=== PATIENT | female | born 1990 | race Caucasian/White ===

== ENCOUNTER 2022-10-29 10:29 | Day surgery (SDC) | payer SELFPAY ==
[2022-10-27 15:34] VITALS: BMI 30.2
[2022-10-29] MEDS ORDERED: Bupivacaine PF 0.5% 30 ML VIAL ONE (10:54)
[2022-10-29] MEDS ORDERED: CEFAZOLIN 1 GM VIAL ONE (10:55)
[2022-10-29] MEDS ORDERED: Sodium Chloride 0.9% 10 ML ONE ×2 (10:57)
[2022-10-29 11:18] LABS: Hemoglobin 12.7 g/dL (12.0-15.5); Mean Corpuscular HGB CONC 31.6 g/dL (32.0-36.0); Mean Corpuscular Hemoglobin 31.8 pg (27.0-33.0); Mean Corpuscular Volume 100.5 fl (81.6-98.3); Mean Platelet Volume 10.4 fl (7.4-10.4); Platelet Count 281 10x3/uL (150-450); RBC Distribution Width 12.9 % (11.5-14.5); White Blood Cell (WBC) Count 8.9 10x3/uL (3.5-10.5)
[2022-10-29 11:41] LABS: Anion Gap 15 mmol/L (10-20); BUN (Urea Nitrogen) 22 mg/dL (7.0-18.7); Calc. Creatinine Clearance 82 mL/min (70-130); Carbon Dioxide 24 mmol/L (22-29); Chloride 105 mmol/L (98-107); Estimated GFR 65; Glucose 78 mg/dL (70-105); Sodium 139 mmol/L (136-145)
[2022-10-29] MEDS ORDERED: PROPOFOL 20 ML ONE (12:19)
[2022-10-29] MEDS ORDERED: Midazolam HCl 2 mg/2 ml Vial ONE (12:19)
[2022-10-29] MEDS ORDERED: Fentanyl 100 MCG/2 ML VIAL ONE ×2 (12:19→14:39)
[2022-10-29] MEDS ORDERED: Dexamethasone 4 mg/ml Vial ONE (13:04)
[2022-10-29] MEDS ORDERED: Ondansetron PF 4 MG/2 ML Vial ONE (13:04)
[2022-10-29] MEDS ORDERED: PHENYLEPHRINE-NS 100 MCG/ML 10 ML SYRINGE ONE (13:35)
[2022-10-29] MEDS ORDERED: Lidocaine 1% PF 5 ML VIAL ONE (13:38)
[2022-10-29] MEDS ORDERED: ePHEDrine Sulfate 50 MG/10 ML VIAL ONE (13:42)
[2022-10-29] MEDS ORDERED: Meperidine HCl/PF 25 MG/ML VIAL ONE (14:03)
[2022-10-29] MEDS ORDERED: HYDROcodone/Acetaminophen 5/325 mg Tablet ONE (15:17)
== END 2022-10-29 16:25 | disposition home or self-care (01) ==
LOC: CSHSDC 10:29
PROVIDERS: ATTEND Orthopaedic Surgery
PROC: 0QSM04Z Reposition Left Tarsal with Internal Fixation Device, Open Approach (ICD-10-PCS; principal; 2022-10-29)
PROC: 0QUP07Z Supplement Left Metatarsal with Autologous Tissue Substitute, Open Approach (ICD-10-PCS; principal; 2022-10-29)
PROC: 0QSP04Z Reposition Left Metatarsal with Internal Fixation Device, Open Approach (ICD-10-PCS; 2022-10-29)
DX: S92.352K Displaced fracture of fifth metatarsal bone, left foot, subsequent encounter for fracture with nonunion (principal); I10 Essential (primary) hypertension; Z79.899 Other long term (current) drug therapy; Z88.6 Allergy status to analgesic agent; Z88.8 Allergy status to other drugs, medicaments and biological substances; X58.XXXD Exposure to other specified factors, subsequent encounter
CPT/HCPCS: 80048; 85027; C1713; J0690; J1100; J2175; J2250; J2405; J2704; J3010; S0020

== ENCOUNTER 2022-12-21 11:22 | Inpatient (IN) | payer SELFPAY ==
[2022-12-21] MEDS ORDERED: Morphine 4 MG/ML VIAL ONE ×2 (13:04→16:43)
[2022-12-21] MEDS ORDERED: Ondansetron PF 4 MG/2 ML Vial ONE (13:04)
[2022-12-21] MEDS ORDERED: Cefepime 2 GM VIAL ONE (13:16)
[2022-12-21 13:20] LABS: #Neutrophils 11.4 10x3/uL (1.5-8.4); %Basophils 0.2 % (0.0-2.0); %Eosinophils 0.3 % (0.0-6.0); %Lymphocytes 11.5 % (18.0-47.0); %Monocytes 7.2 % (0.0-10.0); %Neutrophils 80.5 % (40.0-75.0); Hemoglobin 12.4 g/dL (12.0-15.5); Mean Corpuscular HGB CONC 32.3 g/dL (32.0-36.0); Mean Corpuscular Hemoglobin 32.3 pg (27.0-33.0); Mean Platelet Volume 10.5 fl (7.4-10.4); Platelet Count 284 10x3/uL (150-450); RBC Distribution Width 13.1 % (11.5-14.5); Red Blood Cell (RBC) Count 3.84 10x6/uL (3.90-5.03); White Blood Cell (WBC) Count 14.2 10x3/uL (3.5-10.5)
[2022-12-21] MEDS ORDERED: Acetaminophen 325 MG TAB ONE (13:24)
[2022-12-21 13:29] LABS: ALT (SGPT) 58 U/L (8-55); AST (SGOT) 26 U/L (5-34); Albumin 4.5 g/dL (3.5-5.0); Alkaline Phosphatase 101 U/L (40-110); Anion Gap 18 mmol/L (10-20); BUN (Urea Nitrogen) 13 mg/dL (7.0-18.7); Bilirubin, Total 0.6 mg/dL (0.2-1.2); Calc. Creatinine Clearance 0 mL/min (70-130); Calcium 10.1 mg/dL (7.8-10.44); Carbon Dioxide 20 mmol/L (22-29); Chloride 101 mmol/L (98-107); Estimated GFR 49; Globulin 3.2 g/dL (2.4-3.5); Glucose 88 mg/dL (70-105); Potassium 4.1 mmol/L (3.5-5.1); Protein, Total 7.7 g/dL (6.0-8.3); Sodium 135 mmol/L (136-145)
[2022-12-21] MEDS ORDERED: Vancomycin HCl 1.5 GM in Sodium Chloride 0.9% 500 ML IVPB SCH (13:30)
[2022-12-21] MEDS ORDERED: diphenhydrAMINE 25 MG CAP ONE (14:42)
[2022-12-21] MEDS ORDERED: Ondansetron PF 4 MG/2 ML Vial IVP PRN (15:32)
[2022-12-21] MEDS: Sodium Chloride 0.9% 1,000 ML IV SCH (20:07)
[2022-12-21] MEDS: Morphine 2 MG/ML VIAL SLOW IVP PRN (20:08)
[2022-12-21] MEDS: Heparin 5,000 UNITS/ML VIAL SC SCH (20:08)
[2022-12-21] MEDS ORDERED: Vancomycin 1 GM in Premix Bag 1 BAG IVPB SCH (21:00)
[2022-12-21] MEDS: Acetaminophen 325 MG TAB PO PRN (22:18)
[2022-12-21 22:19] VITALS: BMI 30.9
[2022-12-22] MEDS: Morphine 2 MG/ML VIAL SLOW IVP PRN ×3 (00:29→13:27)
[2022-12-22] MEDS: HYDROcodone/Acetaminophen 5/325 mg Tablet PO PRN ×5 (00:30→18:00)
[2022-12-22 04:12] LABS: #Eosinphils 0.2 10x3/uL (0.0-0.5); #Monocytes 1.1 10x3/uL (0.0-1.1); #Neutrophils 6.6 10x3/uL (1.5-8.4); %Basophils 0.2 % (0.0-2.0); %Eosinophils 1.9 % (0.0-6.0); %Lymphocytes 24.2 % (18.0-47.0); %Monocytes 10.6 % (0.0-10.0); %Neutrophils 62.6 % (40.0-75.0); Hemoglobin 9.8 g/dL (12.0-15.5); Mean Corpuscular HGB CONC 31.3 g/dL (32.0-36.0); Mean Corpuscular Hemoglobin 32.1 pg (27.0-33.0); Mean Corpuscular Volume 102.6 fl (81.6-98.3); Mean Platelet Volume 10.5 fl (7.4-10.4); Platelet Count 242 10x3/uL (150-450); RBC Distribution Width 13.2 % (11.5-14.5); Red Blood Cell (RBC) Count 3.05 10x6/uL (3.90-5.03); White Blood Cell (WBC) Count 10.6 10x3/uL (3.5-10.5)
[2022-12-22 04:21] LABS: Anion Gap 11 mmol/L (10-20); BUN (Urea Nitrogen) 12 mg/dL (7.0-18.7); Calc. Creatinine Clearance 79 mL/min (70-130); Calcium 8.7 mg/dL (7.8-10.44); Carbon Dioxide 21 mmol/L (22-29); Chloride 110 mmol/L (98-107); Estimated GFR 58; Glucose 91 mg/dL (70-105); Potassium 5.3 mmol/L (3.5-5.1); Sodium 137 mmol/L (136-145)
[2022-12-22] MEDS: Sodium Chloride 0.9% 1,000 ML IV SCH ×4 (04:41→13:53)
[2022-12-22] MEDS: Heparin 5,000 UNITS/ML VIAL SC SCH ×3 (08:55→20:15)
[2022-12-22] MEDS: Amlodipine 5 MG TAB PO SCH (09:01)
[2022-12-22] MEDS ORDERED: Piperacillin/Tazobactam 3.375 GM in Sodium Chloride 0.9% 100 ML IVPB SCH ×2 (14:30→17:00)
[2022-12-22] MEDS ORDERED: fentaNYL 50 mcg/mL 1 mL Vial SLOW IVP SCH (14:30)
[2022-12-22 15:38] LABS: Anion Gap 10 mmol/L (10-20); BUN (Urea Nitrogen) 9 mg/dL (7.0-18.7); Calc. Creatinine Clearance 96 mL/min (70-130); Carbon Dioxide 21 mmol/L (22-29); Chloride 109 mmol/L (98-107); Estimated GFR 73; Glucose 123 mg/dL (70-105); Potassium 4.2 mmol/L (3.5-5.1); Sodium 136 mmol/L (136-145)
[2022-12-22] MEDS: Piperacillin/Tazobactam 3.375 GM in Sodium Chloride 0.9% 100 ML IVPB SCH (18:50)
[2022-12-22] MEDS: Morphine 4 MG/ML VIAL SLOW IVP PRN (20:59)
[2022-12-22] MEDS: Acetaminophen 325 MG TAB PO PRN (23:05)
[2022-12-23] MEDS: Sodium Chloride 0.9% 1,000 ML IV SCH ×4 (01:17→20:40)
[2022-12-23] MEDS: Piperacillin/Tazobactam 3.375 GM in Sodium Chloride 0.9% 100 ML IVPB SCH ×3 (01:56→18:25)
[2022-12-23] MEDS: Morphine 4 MG/ML VIAL SLOW IVP PRN ×2 (04:46→08:54)
[2022-12-23] MEDS ORDERED: Phenol 118 ML BOT PO PRN (08:31)
[2022-12-23] MEDS: Citalopram 20 MG TAB PO SCH (08:53)
[2022-12-23] MEDS: Amlodipine 5 MG TAB PO SCH (08:53)
[2022-12-23] MEDS: Heparin 5,000 UNITS/ML VIAL SC SCH ×3 (08:54→20:38)
[2022-12-23 13:13] LABS: Vancomycin, Trough 7.5 ug/mL
[2022-12-23] MEDS: HYDROcodone/Acetaminophen 5/325 mg Tablet PO PRN ×2 (14:57→22:22)
[2022-12-23] MEDS: Vancomycin HCl 1 GM in Sodium Chloride 0.9% 250 ML 250 ML IVPB SCH (14:57)
[2022-12-23] MEDS: Acetaminophen 325 MG TAB PO PRN (14:58)
[2022-12-23] MEDS ORDERED: Bupivacaine PF 0.5% 30 ML VIAL ONE (17:57)
[2022-12-23] MEDS ORDERED: fentaNYL 50 mcg/mL 1 mL Vial ONE (17:59)
[2022-12-23] MEDS ORDERED: PROPOFOL 20 ML ONE (17:59)
[2022-12-23] MEDS ORDERED: Vancomycin 1 GM VIAL ONE (18:03)
[2022-12-23] MEDS ORDERED: Ondansetron PF 4 MG/2 ML Vial ONE (18:38)
[2022-12-23] MEDS ORDERED: Dexamethasone 4 mg/ml Vial ONE (18:38)
[2022-12-24] MEDS: Morphine 4 MG/ML VIAL SLOW IVP PRN (01:57)
[2022-12-24] MEDS: Piperacillin/Tazobactam 3.375 GM in Sodium Chloride 0.9% 100 ML IVPB SCH ×3 (02:01→22:48)
[2022-12-24] MEDS: Vancomycin HCl 1 GM in Sodium Chloride 0.9% 250 ML 250 ML IVPB SCH ×3 (02:50→18:26)
[2022-12-24] MEDS: HYDROcodone/Acetaminophen 5/325 mg Tablet PO PRN ×2 (03:04→09:51)
[2022-12-24] MEDS: Heparin 5,000 UNITS/ML VIAL SC SCH ×3 (09:47→20:23)
[2022-12-24] MEDS: Sodium Chloride 0.9% 1,000 ML IV SCH ×2 (09:51→20:12)
[2022-12-24] MEDS: Amlodipine 5 MG TAB PO SCH (09:52)
[2022-12-24] MEDS: Citalopram 20 MG TAB PO SCH (09:52)
[2022-12-24] MEDS ORDERED: Morphine 4 MG/ML VIAL SLOW IVP PRN (11:34)
[2022-12-24] MEDS: HYDROcodone/Acetaminophen 10/325 mg Tablet PO PRN ×2 (13:18→22:52)
[2022-12-25] MEDS: Piperacillin/Tazobactam 3.375 GM in Sodium Chloride 0.9% 100 ML IVPB SCH ×3 (03:06→18:28)
[2022-12-25] MEDS: Sodium Chloride 0.9% 1,000 ML IV SCH ×3 (03:06→18:29)
[2022-12-25] MEDS: HYDROcodone/Acetaminophen 10/325 mg Tablet PO PRN ×4 (03:07→20:24)
[2022-12-25] MEDS: Vancomycin HCl 1 GM in Sodium Chloride 0.9% 250 ML 250 ML IVPB SCH ×2 (06:08→17:07)
[2022-12-25] MEDS ORDERED: Piperacillin/Tazobactam 3.375 GM VIAL ONE (08:22)
[2022-12-25] MEDS: Hydrochlorothiazide 25 MG TAB PO SCH (08:49)
[2022-12-25] MEDS: Losartan 25 MG TAB PO SCH (08:49)
[2022-12-25] MEDS: Citalopram 20 MG TAB PO SCH (08:50)
[2022-12-25] MEDS: Heparin 5,000 UNITS/ML VIAL SC SCH ×3 (08:51→20:24)
[2022-12-26] MEDS: Sodium Chloride 0.9% 1,000 ML IV SCH ×2 (02:08→08:15)
[2022-12-26] MEDS: Piperacillin/Tazobactam 3.375 GM in Sodium Chloride 0.9% 100 ML IVPB SCH ×2 (02:13→10:21)
[2022-12-26] MEDS: HYDROcodone/Acetaminophen 10/325 mg Tablet PO PRN ×3 (02:28→12:53)
[2022-12-26] MEDS: Hydrochlorothiazide 25 MG TAB PO SCH (08:12)
[2022-12-26] MEDS: Losartan 25 MG TAB PO SCH (08:12)
[2022-12-26] MEDS: Citalopram 20 MG TAB PO SCH (08:12)
[2022-12-26] MEDS: Heparin 5,000 UNITS/ML VIAL SC SCH ×2 (08:13→17:04)
[2022-12-26] MEDS ORDERED: Vancomycin HCl 1 GM in Sodium Chloride 0.9% 250 ML 250 ML IVPB SCH (17:00)
[2022-12-26 18:11] VITALS: BP 145/66; TEMP 98
== END 2022-12-26 19:25 | disposition home or self-care (01) | DRG 495 ==
LOC: CSHERS 11:22 → CSHTELE 17:11
PROVIDERS: ADMIT Internal Medicine; ATTEND Internal Medicine
PROC: 0QPP04Z Removal of Internal Fixation Device from Left Metatarsal, Open Approach (ICD-10-PCS; principal; 2022-12-23)
DX: T84.59XA Infection and inflammatory reaction due to other internal joint prosthesis, initial encounter (principal); A41.01 Sepsis due to Methicillin susceptible Staphylococcus aureus; T81.49XA Infection following a procedure, other surgical site, initial encounter; L02.612 Cutaneous abscess of left foot; L03.116 Cellulitis of left lower limb; N17.9 Acute kidney failure, unspecified; I12.9 Hypertensive chronic kidney disease with stage 1 through stage 4 chronic kidney disease, or unspecified chronic kidney disease; F32.A Depression, unspecified; N18.2 Chronic kidney disease, stage 2 (mild); Y83.8 Other surgical procedures as the cause of abnormal reaction of the patient, or of later complication, without mention of misadventure at the time of the procedure; E87.5 Hyperkalemia; Z88.8 Allergy status to other drugs, medicaments and biological substances; Z79.899 Other long term (current) drug therapy; Z90.49 Acquired absence of other specified parts of digestive tract; Z90.710 Acquired absence of both cervix and uterus
CPT/HCPCS: 36415; 80048; 80053; 80202; 82565; 83605; 84520; 85025; 85652; 86140; 87040; 87070; 87077; 87186; 87205; 96365; 96366; 96367; 96375; 96376; J0692; J1100; J1644; J2270; J2272; J2405; J2543; J2704; J3010; J3370; J3490; J7030; J7050; S0020

== ENCOUNTER 2023-02-02 18:37 | Emergency (ER) | payer SELFPAY ==
[2023-02-02] MEDS ORDERED: HYDROcodone/Acetaminophen 5/325 mg Tablet ONE (19:46)
== END 2023-02-02 20:15 | disposition home or self-care (01) ==
LOC: CSHERS 18:37
DX: L03.116 Cellulitis of left lower limb (principal)
CPT/HCPCS: 99283

== ENCOUNTER 2023-03-08 10:25 | Emergency (ER) | payer SELFPAY ==
[2023-03-08] MEDS ORDERED: HYDROcodone/Acetaminophen 5/325 mg Tablet ONE (11:03)
[2023-03-08] MEDS ORDERED: Ketorolac Tromethamine 30 MG/ML VIAL ONE (11:04)
[2023-03-08 11:19] LABS: #Eosinphils 0.1 10x3/uL (0.0-0.5); #Monocytes 0.6 10x3/uL (0.0-1.1); #Neutrophils 6.1 10x3/uL (1.5-8.4); %Basophils 0.1 % (0.0-2.0); %Eosinophils 0.6 % (0.0-6.0); %Lymphocytes 29.4 % (18.0-47.0); %Monocytes 6.6 % (0.0-10.0); Hematocrit 39.8 % (34.9-44.5); Hemoglobin 12.8 g/dL (12.0-15.5); Mean Corpuscular HGB CONC 32.2 g/dL (32.0-36.0); Mean Corpuscular Hemoglobin 31.4 pg (27.0-33.0); Mean Corpuscular Volume 97.5 fl (81.6-98.3); Platelet Count 257 10x3/uL (150-450); RBC Distribution Width 12.6 % (11.5-14.5); Red Blood Cell (RBC) Count 4.08 10x6/uL (3.90-5.03); White Blood Cell (WBC) Count 9.7 10x3/uL (3.5-10.5)
[2023-03-08 11:47] LABS: ALT (SGPT) 23 U/L (8-55); AST (SGOT) 18 U/L (5-34); Albumin 4.4 g/dL (3.5-5.0); Alkaline Phosphatase 83 U/L (40-110); Anion Gap 18 mmol/L (10-20); BUN (Urea Nitrogen) 17 mg/dL (7.0-18.7); Bilirubin, Total 0.5 mg/dL (0.2-1.2); Calc. Creatinine Clearance 0 mL/min (70-130); Calcium 9.6 mg/dL (7.8-10.44); Carbon Dioxide 18 mmol/L (22-29); Chloride 108 mmol/L (98-107); Estimated GFR 71; Globulin 2.8 g/dL (2.4-3.5); Glucose 86 mg/dL (70-105); Potassium 5.1 mmol/L (3.5-5.1); Protein, Total 7.2 g/dL (6.0-8.3); Sodium 139 mmol/L (136-145)
[2023-03-08] MEDS ORDERED: Doxycycline 100 MG CAP PO SCH (13:00)
== END 2023-03-08 13:14 | disposition home or self-care (01) ==
LOC: CSHERS 10:25
DX: L03.116 Cellulitis of left lower limb (principal)
CPT/HCPCS: 80053; 83605; 85025; 96374; J1885

== ENCOUNTER 2023-04-17 18:58 | Emergency (ER) | payer SELFPAY ==
[2023-04-17] MEDS ORDERED: HYDROcodone/Acetaminophen 5/325 mg Tablet ONE (19:27)
== END 2023-04-17 20:06 | disposition home or self-care (01) ==
LOC: CSHERS 18:58
DX: M79.672 Pain in left foot (principal); G89.29 Other chronic pain